=== PATIENT | female | born 1975 | race Caucasian/White ===

== ENCOUNTER → 2017-11-22 | Outpatient (CLI) | payer OTHER | LOC: LAB EV 14:14 → LAB SHORT 14:14 | DX: N39.0 Urinary tract infection, site not specified (principal) | CPT/HCPCS: 87077; 87086; 87186 ==

== ENCOUNTER → 2019-03-04 | Outpatient (CLI) | payer OTHER ==
[2019-03-04 18:45] LABS: C-REACTIVE PROTEIN, EXT RANGE <0.290 mg/dL (0.000-0.300)
[2019-03-04 19:11] LABS: Thyroid Stimulating Hormone 0.765 uIU/mL (0.360-4.800)
== END | disposition home or self-care (01) ==
LOC: LAB EV 17:28 → LAB SHORT 17:28
PROVIDERS: Hospitalist
DX: G62.9 Polyneuropathy, unspecified (principal)
CPT/HCPCS: 82607; 84439; 84443; 85651; 86140

== ENCOUNTER 2023-05-16 03:41 | Day surgery (SDC) | payer OTHER ==
[2023-05-16 09:00] VITALS: BP 134/79
[2023-05-16] MEDS ORDERED: CITALOPRAM HBR20 M9 PO (10:14)
[2023-05-16] MEDS ORDERED: TRAZ50 PO (10:15)
[2023-05-16] MEDS ORDERED: Alprazolam ER1 MG PO (10:15)
[2023-05-16] MEDS ORDERED: TOPI100 PO (10:15)
[2023-05-16] MEDS ORDERED: VITAMIN D31000 UNI1 PO (10:16)
[2023-05-16] MEDS ORDERED: Vitamin B-12100 MCG PO (10:16)
[2023-05-16] MEDS ORDERED: FLUT.05NI (10:16)
[2023-05-16] MEDS ORDERED: BACLOFEN10 M4 PO (10:16)
[2023-05-16] MEDS ORDERED: GLATOPA20 MG/1 ML SC (10:17)
== END 2023-05-16 09:35 | disposition home or self-care (01) ==
LOC: ATC 03:41
DX: G35 Multiple sclerosis (principal); F41.1 Generalized anxiety disorder; G47.09 Other insomnia; Z88.5 Allergy status to narcotic agent; Z88.8 Allergy status to other drugs, medicaments and biological substances; Z79.899 Other long term (current) drug therapy
CPT/HCPCS: 96365; J2930

== ENCOUNTER 2023-05-17 01:11 | Day surgery (SDC) | payer OTHER ==
[~2023-05-17 01:11] MED LIST: Alprazolam ER1 MG PO; BACLOFEN10 M4 PO; CITALOPRAM HBR20 M9 PO; FLUT.05NI; GLATOPA20 MG/1 ML SC; TOPI100 PO; TRAZ50 PO; VITAMIN D31000 UNI1 PO; Vitamin B-12100 MCG PO
[2023-05-17 09:10] VITALS: BP 144/91
== END 2023-05-17 09:39 | disposition home or self-care (01) ==
LOC: ATC 01:11
DX: G35 Multiple sclerosis (principal); F41.1 Generalized anxiety disorder; G47.00 Insomnia, unspecified
CPT/HCPCS: 96365; J2930

== ENCOUNTER 2023-05-18 00:11 | Day surgery (SDC) | payer OTHER ==
[2023-05-18 08:54] VITALS: BP 168/94
== END 2023-05-18 09:26 | disposition home or self-care (01) ==
LOC: ATC 00:11
DX: G35 Multiple sclerosis (principal); F41.1 Generalized anxiety disorder; G47.09 Other insomnia; Z88.5 Allergy status to narcotic agent; Z88.8 Allergy status to other drugs, medicaments and biological substances; Z79.899 Other long term (current) drug therapy
CPT/HCPCS: 96365; J2930

== ENCOUNTER → 2023-06-17 | Outpatient (CLI) | payer OTHER | LOC: LAB 14:03 → LAB SHORT 14:03 | DX: N30.00 Acute cystitis without hematuria (principal) | CPT/HCPCS: 87077; 87086; 87186 ==

== ENCOUNTER → 2024-07-21 | Outpatient (CLI) | payer OTHER | LOC: LAB SHORT 14:06 → LAB 14:06 | DX: N30.00 Acute cystitis without hematuria (principal) | CPT/HCPCS: 87077; 87086; 87186 ==

== ENCOUNTER → 2025-08-31 | Outpatient (CLI) | payer OTHER | END | disposition home or self-care (01) | LOC: LAB 17:55 → LAB SHORT 17:55 | DX: N92.6 Irregular menstruation, unspecified (principal) | CPT/HCPCS: 83001 ==